=== PATIENT | female | born 1990 | race Caucasian/White ===

== ENCOUNTER 2017-04-04 21:53 | Emergency (ER) | payer OTHER ==
[~2017-04-04 21:53] MED LIST: IBUP1TAB PO; NAPR500T PO; OXYC-323 PO; PREN1TAB58 PO; PROAIR HFA8.5 GM IH; [UNRECOGNIZED DRUG - REMARK] PO
[2017-04-04 21:57] VITALS: BP 164/84
--- NOTE | 2017-04-04 22:03 | PHYS DOC ---
Past Medical History Past Medical History: No Pertinent History, Asthma Past Surgical History: Cholecystectomy Alcohol Use: Occasionally Drug Use: None Adult General Chief Complaint Chief Complaint: HAND PROBLEM HPI HPI Patient is a 26 year old E male presents to the emergency department after she fell on outstretched hands 2 hours prior to arrival. Review of Systems Review of Systems Constitutional: Denies fever or chills [] Eyes: Denies change in visual acuity, redness, or eye pain [] HENT: Denies nasal congestion or sore throat [] Respiratory: Denies cough or shortness of breath [] Cardiovascular: No additional information not addressed in HPI [] GI: Denies abdominal pain, nausea, vomiting, bloody stools or diarrhea [] : Denies dysuria or hematuria [] Musculoskeletal: Right wrist pain Integument: Denies rash or skin lesions [] Neurologic: Denies headache, focal weakness or sensory changes [] Endocrine: Denies polyuria or polydipsia [] Allergies Allergies Allergies Coded Allergies Type Severity Reaction Last Updated Verified No Known Drug Allergies 09/02/15 No Physical Exam Physical Exam Constitutional: Well developed, well nourished, no acute distress, non-toxic appearance. [] Neck: Normal range of motion, no tenderness, supple, no stridor. [] Cardiovascular:Heart rate regular rhythm, no murmur [] Lungs & Thorax: Bilateral breath sounds clear to auscultation [] Skin: Warm, dry, no erythema, no rash. [] Back: No tenderness, no CVA tenderness. [] Extremities: Exam of the right upper extremity: Right shoulder and right elbow exam unremarkable. Right wrist without swelling without ecchymosis. She is nontender to palpate will allow for active and passive range of motion without apparent increase in pain. Right hand exam is unremarkable. There are no abrasions noted. Neurovascular intact distally. Neurologic: Alert and oriented X 3, normal motor function, normal sensory function, no focal deficits noted. [] Current Patient Data Vital Signs Vital Signs Date Time Temp Pulse Resp B/P (MAP) Pulse Ox O2 Delivery O2 Flow Rate FiO2 04/04/17 21:57 114 97 Room Air EKG EKG [] Radiology/Procedures Radiology/Procedures Right wrist x-ray reviewed, no acute bony abnormalities[] Course & Med Decision Making Course & Med Decision Making Pertinent Labs and Imaging studies reviewed. (See chart for details) []Right wrist placed in an occurrence splint nursing staff. Patient tolerated well. Neurovascular intact distally. Dragon Disclaimer Dragon Disclaimer This electronic medical record was generated, in whole or in part, using a voice recognition dictation system. Departure Departure Impression: Primary Impression: Right wrist sprain Disposition: 01 HOME, SELF-CARE Condition: STABLE Referrals: JANEY RAMOS MD (PCP) Patient Instructions: RICE - Routine Care for Injuries, Wrist Sprain with Rehab -SportsMed Additional Instructions: Wear Velcro splint 7 days a week with the exception of bathing for 2 weeks. Call your primary care provider in 7-10 days. Problem Qualifiers Primary Impression: Right wrist sprain Encounter type: initial encounter Qualified Codes: S63.501A - Unspecified sprain of right wrist, initial encounter SAMRA CANTU APRN Apr 04, 2017 22:03
--- NOTE | 2017-04-05 07:45 | RAD ---
Exam performed: 3 views of the right wrist. Clinical Indication:Right wrist pain, status post fall Date of Service:04/04/17 Comparison: None available Findings: PA, oblique and lateral radiographs of the wrist reveal the osseous structures to be intact and well aligned. The joint spaces are well-preserved and the articular margins are smooth. Evidence of acute fracture, dislocation or other significant osseous abnormality is not identified. Impression: No acute abnormality seen in the right wrist
== END 2017-04-04 22:25 | disposition home or self-care (01) ==
LOC: ER 21:53
DX: S63.501A Unspecified sprain of right wrist, initial encounter (principal); J45.909 Unspecified asthma, uncomplicated; W19.XXXA Unspecified fall, initial encounter; Y93.89 Activity, other specified; Y99.8 Other external cause status; Y92.89 Other specified places as the place of occurrence of the external cause
CPT/HCPCS: 29125; 73110; 99284-25

== ENCOUNTER 2017-07-01 05:53 | Inpatient (IN) | payer OTHER ==
[~2017-07-01] VITALS: Ht 162.6 cm; Wt 127.9 kg
[~2017-07-01 05:53] MED LIST changes: +NAPR-683 PO; -NAPR500T PO
[2017-07-01] MEDS ORDERED: LIDOCAINE 1% PF 30 ML VIAL. INJ PRN (06:00)
[2017-07-01] MEDS ORDERED: MAG HYDROX/ALUMINUM HYD/SIMETH 30 ML ORAL.SUSP PO PRN ×2 (06:00→20:30)
[2017-07-01] MEDS ORDERED: BUTORPHANOL 2 MG/ML VIAL. IV PRN (06:00)
[2017-07-01] MEDS ORDERED: ONDANSETRON PF 4 MG/2 ML VIAL. IV PRN ×2 (06:00→12:45)
[2017-07-01] MEDS ORDERED: fentaNYL PF VIAL 100 MCG/2 ML VIAL IV PRN (06:00)
[2017-07-01] MEDS ORDERED: ACETAMINOPHEN 325 MG TABLET. PO PRN ×2 (06:00→20:30)
[2017-07-01] MEDS ORDERED: CITRIC ACID/SODIUM CITRATE 30 ML SOLUTION. PO PRN (06:00)
[2017-07-01] MEDS ORDERED: IBUPROFEN 600 MG TABLET. PO PRN (06:00)
[2017-07-01] MEDS ORDERED: OXYTOCIN 30 UNIT/500 ML PREMIX 500 ML IV PRN ×3 (06:00→20:30)
[2017-07-01] MEDS ORDERED: TERBUTALINE 1 MG/ML VIAL. SQ PRN (06:00)
[2017-07-01] MEDS ORDERED: 0.9 % SODIUM CHLORIDE 10 ML DISP.SYRIN. IV PRN ×2 (06:00→20:30)
[2017-07-01] MEDS: IV RINGERS,LACTATED 1000ML 1,000 ML IV SCH ×3 (06:47→22:00)
[2017-07-01 06:53] VITALS: BP 120/61
[2017-07-01 06:54] LABS: HEMATOCRIT 33.5 % (36.0-47.0); HEMOGLOBIN 11.1 g/dL (12.0-15.5); RED BLOOD COUNT 4.07 x10^6/uL (3.50-5.40); RED CELL DISTRIBUTION WIDTH 15.3 % (11.5-14.5); WHITE BLOOD COUNT 6.7 x10^3/uL (4.0-11.0)
[2017-07-01] MEDS ORDERED: AMPICILLIN SODIUM 1 GM in IV NORMAL SALINE 50ML 50 ML IV SCH (08:00)
[2017-07-01] MEDS ORDERED: AMPICILLIN SODIUM 2 GM in IV NORMAL SALINE 100ML 100 ML IV ONE (08:00)
[2017-07-01] MEDS ORDERED: NALOXONE 0.4 MG/ML VIAL. IV PRN (12:45)
[2017-07-01] MEDS ORDERED: ROPIVacaine 0.2% IN 0.9%NACL PF 40 MG/20 ML DISP.SYRIN. EPI ONE (12:45)
[2017-07-01] MEDS ORDERED: fentaNYL PF VIAL 100 MCG/2 ML VIAL EPI ONE (12:45)
[2017-07-01] MEDS ORDERED: L&D EPIDURAL CASSETTE 100 ML EP ONE (12:45)
[2017-07-01] MEDS ORDERED: ROPIVacaine 0.2% IN 0.9%NACL PF 40 MG/20 ML DISP.SYRIN. ONE (12:45)
[2017-07-01] MEDS ORDERED: ePHEDrine PF IN SALINE 50 MG/5 ML DISP.SYRIN IV PRN (12:45)
[2017-07-01] MEDS: L&D EPIDURAL CASSETTE 100 ML EP PRN ×2 (13:26→19:48)
[2017-07-01] MEDS: AMPICILLIN SODIUM IV Push 1 GM VIAL. IVP SCH ×3 (16:00→20:00)
[2017-07-01] MEDS ORDERED: MAGNESIUM HYDROXIDE 2,400 MG/30 ML ORAL.SUSP. PO PRN (20:30)
[2017-07-01] MEDS ORDERED: HYDROCORTISONE 1% TOPICAL OINTMENT 30GM TUBE. TP PRN (20:30)
[2017-07-01] MEDS ORDERED: diphenhydrAMINE HCL 25 MG CAPSULE PO PRN (20:30)
[2017-07-01] MEDS ORDERED: BENZOCAINE 20% TOPICAL AEROSOL SPRAY 57GM CAN. TP PRN (20:30)
[2017-07-01] MEDS ORDERED: SIMETHICONE 80 MG TAB.CHEW PO PRN (20:30)
[2017-07-01] MEDS ORDERED: ZOLPIDEM 5 MG TABLET. PO PRN (20:30)
[2017-07-01] MEDS ORDERED: PHENYLEPH/MINERAL OIL/PETROLAT RECTAL OINTMENT 28GM TUBE. RC PRN (20:30)
[2017-07-01] MEDS: IBUPROFEN 800 MG TABLET. PO SCH (22:00)
[2017-07-02 00:27] VITALS: BP 111/66
[2017-07-02] MEDS: AMPICILLIN SODIUM IV Push 1 GM VIAL. IVP SCH ×2 (04:00)
[2017-07-02 04:35] VITALS: BP 108/67
[2017-07-02] MEDS: HYDROcodone/APAP 5/325MG 1 TAB TABLET PO PRN ×2 (04:49→16:18)
[2017-07-02] MEDS: IBUPROFEN 800 MG TABLET. PO SCH ×2 (06:00→12:41)
[2017-07-02] MEDS ORDERED: FERROUS SULFATE 325 MG TABLET. PO SCH (08:00)
[2017-07-02 09:00] VITALS: BP 103/64
[2017-07-02 12:25] VITALS: BP 88/50
[2017-07-02 16:40] VITALS: BP 110/68
[2017-07-02] MEDS ORDERED: FLU VACC QS2017-18 (36MOS+)/PF 0.5 ML SYRINGE. VAX IM ONE (17:00)
[2017-07-02 23:02] VITALS: BP 107/72
[2017-07-03] MEDS: IBUPROFEN 800 MG TABLET. PO SCH ×2 (06:00→16:25)
[2017-07-03 06:02] VITALS: BP 105/62
[2017-07-03] MEDS ORDERED: DOCUSATE SODIUM 100 MG CAPSULE. PO PRN (08:30)
[2017-07-03] MEDS ORDERED: NAPR500T4 PO (10:17)
[2017-07-03] MEDS ORDERED: HYDR-971 PO (10:17)
[2017-07-03 10:30] VITALS: BP 102/68
--- NOTE | 2017-07-03 11:02 | HP ---
ADMIT DATE: 07/01/2017 ADMISSION DIAGNOSIS: Term intrauterine induction. HISTORY OF PRESENT ILLNESS: This is a 26-year-old 4, para 3, with an EDC of 07/17/2017, with pregnancies uncomplicated, presents for induction for routine delivery. No family history of bleeding disorders. No hypertension. No late term deaths. REVIEW OF SYSTEMS: Per HPI. PAST MEDICAL HISTORY: Noncontributory. LABORATORY DATA: GC is negative. Chlamydia is negative. O positive. Rubella immune. HIV nonreactive and hepatitis C negative. PHYSICAL EXAMINATION: VITAL SIGNS: Blood pressure is 132/72. Weight is 281 pounds. BMI is 48.2. HEENT: Head is normocephalic, atraumatic. Pupils equal, round and reactive to light. LUNGS: Clear to auscultation. ABDOMEN: Gravid. HEART: Regular rate and rhythm. No CVA tenderness. EXTREMITIES: Trace edema. PELVIC EXAMINATION: As stated by the nursing staff. IMPRESSION AND PLAN: Term intrauterine induction. Anticipate controlled spontaneous vaginal delivery. PROMISE BLANCO MD DR: VERO/tamara JOB#: [id number] / [id number]
[2017-07-03 13:30] VITALS: BP 119/77
[2017-07-03 16:10] VITALS: BP 98/65
--- NOTE | 2017-07-03 16:48 | DS ---
DATE OF DISCHARGE: 07/03/2017 ADMISSION DIAGNOSIS: Term intrauterine , scheduled induction. DISCHARGE DIAGNOSIS: Term intrauterine , scheduled induction, status post delivered term intrauterine . HOSPITAL COURSE: Unremarkable. The patient did quite well, progressed ____ tolerating liquid diet. Uterus remained nontender to palpation. Minimal vaginal bleeding, bonding quite well with the infant. The patient was discharged home on 07/03/2017 in a stable condition. Routine discharge instructions were given. Any nausea, vomiting, fever, chills, pain beyond which she is currently experiencing, any abnormal vaginal odor or increased pain in her abdomen, the patient is to return to the ER or call my office. DISCHARGE MEDICATIONS: Narco #20 and Naproxen #60. FOLLOWUP: Return clinic appointment is in one week. PROMISE BLANCO MD DR: VERO/tamara JOB#: [id number] / [id number]
--- NOTE | 2017-07-03 18:15 | PN ---
DATE: 07/02/2017 SUMMARY: She is day #1. The patient is resting comfortably with her , having no complaints. Temperature 97.4, pulse is 77, respirations 18, blood pressure is 110/68, pulse ox is 98% on room air. Her uterus is nontender to palpation, minimum lochia. IMPRESSION: day #1, doing quite well. Continue current care. PROMISE BLANCO MD DR: VERO/tamara JOB#: [id number] / [id number]
--- NOTE | 2017-07-03 18:31 | PN ---
DATE: 07/03/2017 SUBJECTIVE: The patient has continued to improve, doing well, has no complaints. OBJECTIVE: VITAL SIGNS: Temperature 97.7, [id number], pulse is 63, blood pressure is 105/62. ASSESSMENT: The uterus is nontender to palpation. The patient does not complain of any breast discomfort. IMPRESSION: Pos- day #2. DISPOSITION: Discharge to home. PROMISE BLANCO MD DR: VERO/nts JOB#: [id number] / [id number]
--- NOTE | 2017-07-03 18:46 | LDN ---
DATE OF DELIVERY: 07/01/2017 DELIVERY NOTE: Under epidural anesthesia, the patient progressed through the difficult spontaneous vaginal delivery of a male , weight 31.8 5 grams, Apgars 8, 9 and 9 ovary intact perineum. The infant was bulb suctioned on the peritoneum delivered in usual fashion and placed on the other is abdomen cord was then doubly clamped, transected cord between two clamps. The infant cried spontaneously and moved all extremities. Cord blood samples were taken, placenta delivered spontaneously intact, 3-vessel cord. There was no other periurethrovaginal or cervical lacerations appreciated. Estimated blood loss was 300 mL. The mother and child tolerated the procedure well. PROMISE BLANCO MD DR: VERO/tamara JOB#: [id number] / [id number]
== END 2017-07-03 17:30 | disposition home or self-care (01) | DRG 775 ==
LOC: 3 SO LND 05:53
PROVIDERS: ADMIT Specialist; ATTEND Specialist
PROC: 3E0R3BZ Introduction of Anesthetic Agent into Spinal Canal, Percutaneous Approach (ICD-10-PCS; principal; 2017-07-02)
PROC: 10E0XZZ Delivery of Products of Conception, External Approach (ICD-10-PCS; 2017-07-02)
PROC: 00HU33Z Insertion of Infusion Device into Spinal Canal, Percutaneous Approach (ICD-10-PCS; 2017-07-02)
DX: O80 Encounter for full-term uncomplicated delivery (principal); O99.820 Streptococcus B carrier state complicating pregnancy; Z37.0 Single live birth; Z3A.00 Weeks of gestation of pregnancy not specified
CPT/HCPCS: 36415; 85014; 85027; 86593; 86850; 86900; 86901; 90686; J0290; J2590; J2795; J3010; J7120; Q0163

== ENCOUNTER 2017-09-22 18:11 | Emergency (ER) | payer OTHER ==
[2017-09-22 20:22] LABS: INFLUENZA A PATIENT NEGATIVE (NEGATIVE); INFLUENZA B PATIENT POSITIVE (NEGATIVE); OBC FLU VALID
== END 2017-09-22 20:39 | disposition home or self-care (01) ==
LOC: ER 20:39
DX: J10.1 Influenza due to other identified influenza virus with other respiratory manifestations (principal)
CPT/HCPCS: 87804; 87804-59; 99284

== ENCOUNTER 2018-01-18 17:45 | Emergency (ER) | payer SELFPAY, OTHER ==
[2018-01-18 20:25] LABS: URINE HCG POC HCG POSITIVE (Negative)
== END 2018-01-18 20:55 | disposition home or self-care (01) ==
LOC: ER 20:55
DX: O9A.211 Injury, poisoning and certain other consequences of external causes complicating pregnancy, first trimester (principal); S00.83XA Contusion of other part of head, initial encounter; O99.519 Diseases of the respiratory system complicating pregnancy, unspecified trimester; R11.10 Vomiting, unspecified; J45.909 Unspecified asthma, uncomplicated; Z90.49 Acquired absence of other specified parts of digestive tract; Z3A.00 Weeks of gestation of pregnancy not specified; Y08.89XA Assault by other specified means, initial encounter; Y93.89 Activity, other specified; Y92.89 Other specified places as the place of occurrence of the external cause; Y99.8 Other external cause status
CPT/HCPCS: 81025; 99282; 99284